=== PATIENT | female | born 1980 | race Caucasian/White ===

== ENCOUNTER 2023-01-08 09:46 | Emergency (ER) | payer OTHER, SELFPAY ==
--- NOTE | ~2023-01-08 | CT_ITS ---
EXAMINATION: CT ABDOMEN AND PELVIS WITH CONTRAST CLINICAL INFORMATION: Right lower quadrant pain COMPARISON: None available. TECHNIQUE: Multidetector volumetric images were obtained from the superior aspect of the liver through the pubic symphysis following administration 85 mL of Omnipaque 350 intravenous contrast. Sagittal and coronal reformatted images were obtained on the technologist's workstation. Oral contrast: Yes This CT examination was performed using dose optimization techniques as appropriate, variously including the following: *Automated exposure control *Adjustment of mA and/or kV according to patient size (this includes techniques or standardized protocols for targeted exams where dose is matched to indication/reason for exam; i.e. extremities or head) *Use of iterative reconstruction technique DLP: 986 mGy-cm FINDINGS: LUNG BASES: The visualized lung bases are unremarkable. LIVER, GALLBLADDER, AND BILIARY TREE: The liver is normal in size, shape, and attenuation. No focal hepatic lesion or biliary ductal dilatation is present. The gallbladder is unremarkable with no evidence of radiopaque gallstones, gallbladder wall thickening, or obvious pericholecystic inflammatory changes. PANCREAS: Unremarkable. SPLEEN: Slightly enlarged measuring 14 cm in length.. ADRENAL GLANDS: Unremarkable. KIDNEYS AND URETERS: The kidneys are normal in size, shape, and attenuation. No hydronephrosis, hydroureter, or calculi seen. No perinephric stranding. BLADDER: Unremarkable. GASTROINTESTINAL TRACT: The small and large bowel are unremarkable. The appendix is unremarkable. ABDOMINAL WALL: No significant hernia is appreciated. LYMPH NODES: Normal. VASCULAR: Unremarkable. PELVIC VISCERA: Enlarged ovaries with multiple bilateral cysts. Small amount of fluid in the pelvis and right lower quadrant. OSSEOUS STRUCTURES: Unremarkable. CT/CT abdomen pelvis w IV con IMPRESSION: Enlarged ovaries with multiple bilateral cysts. Small amount of fluid in the pelvis and right lower quadrant. Ovaries could be better evaluated with pelvic ultrasound if clinically indicated. Otherwise unremarkable exam. The appendix is normal appearing. Fleischner guidelines were followed.
[2023-01-08 09:47] VITALS: BP 156/103; PULSE 117; RESP 18; TEMP 36.7; O2SAT 98; BMI 44.2
--- NOTE | 2023-01-08 12:36 | ED_ITS ---
HPI - General Adult General Chief complaint: Abdominal Pain Stated complaint: abd pain Time Seen by Provider: 01/08/23 12:35 Source: patient Mode of arrival: ambulatory Limitations: no limitations History of Present Illness HPI narrative: Patient is a 42 year old assigned female at with no isgnificant PMH prese nting to the emergency department today with RLQ intermittent abdominal pain since 09:00 today. Patient states that she has an intact appendix and has been having decrease appetite since the onset of pain. [place]raim any past abdominal surgery, possibility of , or abnormal vaginal discharge. Patient denies any dizziness, lightheadedness, nausea, vomiting, fever, chills, blurry vision, double vision, loss of vision, chest pain, difficulty breathing, shortness of breath, back pain, night sweats, pain with urination, increased urinary frequency, increased urinary urgency, blood in her urine or stool, syncope or a near syncopal episode, recent trauma or falls, bowel incontinence, bladder inc ontinence, bowel retention, bladder retention, or any other complaints at this time. Onset (ago): hour(s) Location: abdomen (RLQ) Quality: sharp Pain Consistency: intermittent Relieving factors: none Exacerbating factors: none Associated symptoms: denies other symptoms Treatments prior to arrival: none Related Data Allergies Allergy/AdvReac Type Severity Reaction Status Date / Time No Known Allergies Allergy Verified 01/08/23 09:50 Review of Systems Review of Systems: Yes all other systems are reviewed and are negative Constitutional: Constitutional: Reports as per HPI Eyes: Eyes: Reports no additional eye complaints and Denies loss of vision ENT: Reports system reviewed and no additional complaints, except as documente d and Denies dizziness Cardiovascular: Cardiovascular: Reports no additional cardiovascular complaints, Denies dyspnea on exertion and Denies orthopnea Respiratory: Respiratory: Reports no additional respiratory complaints and Denies dyspnea on exertion Gastrointestinal: Gastrointestinal: Reports as per HPI, Reports abdominal pain, Denies nausea and Denies vomiting Genitourinary: Genitourinary: Reports as per HPI Musculoskeletal: Musculoskeletal: Reports no additional musculoskeletal complaints, Denies numbness and Denies tingling Neurologic: Denies dizziness, Denies loss of vision, Denies numbness and Denies tingling Psychiatric: Psychiatric: Reports no additional psychiatric complaints Endocrine: Endocrine: Reports no additional endocrine complaints Hematologic/Lymphatic: Hematologic/Lymphatic: Reports no additional hematolo gic/lymphatic complaints Allergic/Immunologic: Allergic/Immunologic: Reports no additional allergic/immunologic complaints [facility] Past Medical History Attestation statement: The following information was validated with the patient. Source: old records reviewed and nursing notes reviewed Social History Social History Advance Directives: No Advance Directives Information Provided: No Physical Exam ED Vital Signs: Vital Signs - 24 hr 01/08/23 09:47 01/08/23 13:33 Temperature 98.0 F 98.8 F Pulse Rate 117 H 80 Respiratory Rate 18 16 Blood Pressure 156/103 H 97/57 L Pulse Oximetry 98 99 Oxygen Delivery Method Room Air Room Air BMI result Body Mass Index 44.2 Const General: cooperative and in distress (pacing in room due to discomfort) Nutritional Appearance: well nourished Orientation/consciousness: oriented to person, oriented to place, oriented to time and patient oriented x3 Limitations: no limitations HENMT Head: Yes normal to inspection Ears: hearing grossly normal bilaterally General nose exam: Normal external nose present Face and sinus: Yes normal facial exam Mouth: Normal oral and palatal mucosa present, no drooling and no muffled voice Eyes General: appearance normal, both eyes and all related structures Periorbital: periorbital findings normal Eyelids: Yes eyelids normal Conjunctivae: conjunctivae normal Pupils: Equal, round and reactive pupils present EOM: EOMs intact bilaterally Neck Neck: Yes normal visual inspection and Yes full ROM Chest Chest palpation & inspection: normal inspection of the chest Resp Effort & Inspection: normal respiratory effort and able to speak in complete sentences Auscultation: clear to auscultation bilaterally Cardio Rate: regular rate Rhythm: regular rhythm GI Inspection: Yes normal to inspection, No abdominal wall ecchymosis and No distended Palpation (GI): Soft to palpation, Tenderness to palpation present (GI) in the LLQ and in the RLQ; not at McBurney's point and Rovsing's sign negative, no guarding and not rigid Auscultation: normal bowel sounds General: Yes no CVA tenderness Back/Spine/Pelvis Back: no CVA tenderness Cervical Spine: normal cervical lordosis Thoracic/Lumbar Spine: thoracic and lumbar spine normal to inspection Neuro General: oriented to person, oriented to place, oriented to time and patient oriented x3 Cranial nerves: Yes Equal, round and reactive pupils present Cognition (Neuro): normal cognition Motor exam (neuro): 5/5 motor strength present throughout Sensory Exam: Normal double simultaneous stimulation for sensation Coordination: [id number] test normal Extrem General: Yes normal to inspection, Yes full ROM and Yes capillary refill normal Psych Appearance: grossly normal Mental Status: mental status grossly normal Affect: normal affect Attitude: cooperative Thought process: Normal thought process present Thought content: Normal thought content present Insight: Good insight present (Psych) Medications Administered Discontinued Medications Generic Name Dose Route Start Last Admin Trade Name Shannan PRN Reason Stop Dose Admin Iohexol 100 ml 01/08/23 14:40 01/08/23 14:40 Iohexol 350 Mg/Ml 100 Ml Infus..Btl IV 01/08/23 14:41 85 ml ONCE ONE Administration Morphine Sulfate 4 mg 01/08/23 12:46 01/08/23 13:52 Morphine Sulfate 4 Mg/Ml Cartridge IVPUSH 01/08/23 12:47 4 mg ONCE ONE Administration Protocol Ondansetron HCl 4 mg 01/08/23 12:46 01/08/23 13:52 Ondansetron Hcl 4 Mg/2 Ml Vial IVPUSH 01/08/23 12:47 4 mg ONCE ONE Administration Medical Decision Making Medical Decision Making [facility] Narrative: Patient is a 42 year old assigned female at with no reported medical history presenting to the emergency department today with abdominal pain. Patient's physical exam showed mild abdominal tenderness to palpation but was otherwise unremarkable. Patient's blood work showed an elevated WBC count of 14.5 which I attribute to stress rather than an acute infection. Patient's urine showed a possible urinary tract infection however, the patient denies any urinary symptoms - will wait for culture before treating. Patient's abdo men/pelvis CT showed multiple ovarian cysts but was otherwise unremarkable. I explained my physical exam findings as well as all test results to the patient. I answered all questions asked by the patient. Patient received IV morphine which she stated helped her symptoms significantly. I stressed the importance of the patient taking her medication as prescribed. I stressed the importance of the patient following up with her primary care provider and an OBGYN. I stressed the importance of the patient returning to the emergency department immediately if her symptoms were to worsen or if she were to develop any dizziness, shortness of breath, difficulty breathing, chest pain, blurry vision, loss of vision, nausea, vomiting, abdominal pain, fever, chills, back pain, or any other complaints. Patient verbalized agreement and understanding with this treatment plan and discharge. Differential Diagnosis Differential Diagnoses: The differential diagnosis associated with the presentation includes ovarian cysts, abdominal pain Lab Data MDM Lab Attestation statement: I reviewed the patient's lab results. 01/08/23 13:16 01/08/23 13:16 Labs: Lab Results 01/08/23 01/08/23 01/08/23 Range/Units 13:16 13:16 13:28 WBC 14.5 H (4.8-10.8) X10*3/uL RBC 5.18 (4.20-5.50) X10*6/uL Hgb 12.2 (12.0-16.0) g/dl Hct 39.6 (37.0-47.0) % MCV 76.4 L (80.0-98.0) fL MCH 23.6 L (27.0-33.0) pg MCHC 30.8 L (31.0-35.0) g/dl RDW 15.9 (11.0-16.0) % Plt Count 732 H (160-400) X10*3/uL MPV 9.2 L (9.4-12.3) fL Immature Gran % (Auto) 0.5 H (0.0-0.4) % Neut % (Auto) 82.3 H (45-73) % Lymph % (Auto) 10.3 L (20-40) % Bell % (Auto) 6.2 (2-11) % Eos % (Auto) 0.3 (0-4) % Baso % (Auto) 0.4 (0-2) % Lymph # (Auto) 1.5 (1.2-4.9) X10*3/uL Bell # (Auto) 0.9 (0.1-1.2) X10*3/uL Eos # (Auto) 0.0 (0.0-0.4) X10*3/uL Baso # (Auto) 0.1 (0.0-0.2) X10*3/uL Abs Immat Gran (auto) 0.07 H (0.00-0.03) X10*3/uL Absolute Neuts (auto) 11.9 H (2.0-8.3) x10*3/uL Absolute Nucleated RBC 0.000 (0.0-0.012) X10*3/uL Nucleated RBC % (auto) 0.0 (0.0-0.2) /100WBC Sodium 141 (135-145) mmol/L Potassium 4.8 (3.3-5.1) mmol/L Chloride 105 (96-108) mmol/L Carbon Dioxide 26 (22-29) mmol/L Anion Gap 15 (12-20) BUN 10 (9-16) mg/dL Creatinine 0.84 (0.5-1.4) mg/dL Estim Creat Clear Calc 107.9 Estimated GFR > 60 Random Glucose 88 (60-115) mg/dL Calcium 9.3 (8.4-10.2) mg/dL Total Bilirubin 1.4 H (0.0-1.0) mg/dL AST 15 (5-31) U/L ALT 9 (0-31) U/L Alkaline Phosphatase 60 (39-117) U/L Total Protein 7.3 (6.5-8.0) g/dL Albumin 4.4 (3.5-5.0) g/dL Lipase 28 (8-78) U/L Beta HCG, Quant < 2 mIU/mL Urine Color Yellow Urine Appearance Cloudy Urine pH 5.5 (5.0-9.0) Ur Specific [place] 1.025 (1.005-1.025) Urine Protein 30 (1+) H (Neg-Trace) mg/dL Urine Glucose (UA) Negative (Negative) mg/dL Urine Ketones Trace (Negative) mg/dL Urine Blood Negative (Negative) Urine Nitrite Negative (Negative) Ur Leukocyte Esterase Small (1+) H (Negative) Urine RBC 0-2 (0-2) /HPF Urine WBC 6-10 H (0-5) /HPF Ur Squamous Epith Cells 11-20 (0-2) /HPF Urine Bacteria 1+ (None Seen) Hyaline Casts 0-2 (0-2) /LPF Independent Interpretation I performed an independent interpretation of an: CT Scan Interpretation: My interpretation is in agreement with the radiologist's impression of this imaging study. EXAMINATION: CT ABDOMEN AND PELVIS WITH CONTRAST? CLINICAL INFORMATION: Right lower quadrant pain? COMPARISON: None available. ? TECHNIQUE: Multidetector volumetric images were obtained from the superior aspect of the liver through the pubic symphysis following administration 85 mL of Omnipaque 350 intravenous contrast. Sagittal and coronal reformatted images were obtained on the technologist's workstation.? Oral contrast: Yes This CT examination was performed using dose optimization techniques as appropriate, variously including the following: *Automated exposure control *Adjustment of mA and/or kV according to patient size (this includes techniques or standardized protocols for targeted exams where dose is matched to indication/reason for exam; i.e. extremities or head) *Use of iterative reconstruction technique DLP: 986 mGy-cm FINDINGS: LUNG BASES: The visualized lung bases are unremarkable.? LIVER, GALLBLADDER, AND BILIARY TREE: The liver is normal in size, shape, and attenuation. No focal hepatic lesion or biliary ductal dilatation is present. The gallbladder is unremarkable with no evidence of radiopaque gallstones, gallbladder wall thickening, or obvious pericholecystic inflammatory changes.? PANCREAS: Unremarkable.? SPLEEN: Slightly enlarged measuring 14 cm in length..? ADRENAL GLANDS: Unremarkable.? KIDNEYS AND URETERS: The kidneys are normal in size, shape, and attenuation. No hydronephrosis, hydroureter, or calculi seen. No perinephric stranding. ? BLADDER: Unremarkable.? GASTROINTESTINAL TRACT: The small and large bowel are unremarkable. The appendix is unremarkable.? ABDOMINAL WALL: No significant hernia is appreciated.? LYMPH NODES: Normal. VASCULAR: Unremarkable. PELVIC VISCERA: Enlarged ovaries with multiple bilateral cysts. Small amount of fluid in the pelvis and right lower quadrant. OSSEOUS STRUCTURES: Unremarkable.? CT/CT abdomen pelvis w IV con IMPRESSION: Enlarged ovaries with multiple bilateral cysts. Small amount of fluid in the pelvis and right lower quadrant. Ovaries could be better evaluated with pelvic ultrasound if clinically indicated. Otherwise unremarkable exam. The appendix is normal appearing. Fleischner guidelines were followed. Dictated By: Thelma Moreno MD Signed By: Electronically signed by Thelma Moreno MD 01/08/23 1507 Discharge Plan Discharge Clinical Impression: Abdominal pain, Ovarian cyst Patient Disposition: Home, Self-Care Instructions: Ovarian Cyst (ED), Abdominal Pain (ED) Additional Instructions: Follow up with your primary care provider and an OBGYN. Return to the emergency department immediately if your symptoms worsen or if you develop any dizziness, shortness of breath, difficulty breathing, chest pain, blurry vision, loss of vision, nausea, vomiting, abdominal pain, fever, chills, back pain, or any other complaints. Referrals: [facility] [Provider Group] (Call to establish and follow up with a primary care provider. If you already have a primary care provider, please follow up with them.) [facility], [place] [Provider Group] (Call to establish and follow up with a primary care provider. If you already have a primary care provider, please follow up with them.) [facility],[place] [Provider Group] (Call to establish and follow up with a primary care provider. If you already have a primary care provider, please follow up with them.) Silvano Faith MD [Physician] - (Call to establish and follow up with an OBGYN. If you already have an OBGYN, please follow up with them.) Stand Alone Forms: Work/School Release Print Language: Nicaraguan
[2023-01-08 13:21] LABS: MANUAL DIFF FLAG NO
[2023-01-08 13:25] LABS: Basophils Absolute Auto 0.1 X10*3/uL (0.0-0.2); Basophils Percent Auto 0.4 % (0-2); Eosinophils Percent Auto 0.3 % (0-4); Hematocrit 39.6 % (37.0-47.0); Hemoglobin 12.2 g/dl (12.0-16.0); Imm Gran Abs Auto 0.07 X10*3/uL (0.00-0.03); Imm Gran Pct Auto 0.5 % (0.0-0.4); Lymphocytes Absolute Auto 1.5 X10*3/uL (1.2-4.9); Lymphocytes Percent Auto 10.3 % (20-40); Mean Corpuscular HGB Conc 30.8 g/dl (31.0-35.0); Mean Corpuscular Hemoglobin 23.6 pg (27.0-33.0); Mean Corpuscular Volume 76.4 fL (80.0-98.0); Mean Platelet Volume 9.2 fL (9.4-12.3); Monocytes Absolute Auto 0.9 X10*3/uL (0.1-1.2); Monocytes Percent Auto 6.2 % (2-11); Neutrophils Absolute Auto 11.9 x10*3/uL (2.0-8.3); Neutrophils Percent Auto 82.3 % (45-73); Platelet Count 732 X10*3/uL (160-400); Red Blood Count 5.18 X10*6/uL (4.20-5.50); Red Cell Distribution Width 15.9 % (11.0-16.0); White Blood Count 14.5 X10*3/uL (4.8-10.8)
[2023-01-08 13:33] VITALS: BP 97/57; PULSE 80; RESP 16; TEMP 37.1; O2SAT 99
[2023-01-08 13:48] LABS: Appearance Urine Cloudy; Color Urine Yellow; Glucose Urine UA Negative (Negative); Leukocyte Esterase Urine Small (1+) (Negative); Nitrite Urine Negative (Negative); PH 5.5 (5.0-9.0); Specific Gravity - Urine 1.025 (1.005-1.025); UMIC TRIGGER UACC YES; Urine Blood Negative (Negative); Urine Ketones Trace mg/dL (Negative); Urine Protein 30 (1+) mg/dL (Neg-Trace)
[2023-01-08] MEDS: Morphine Sulfate 4 MG/ML CARTRIDGE IVPUSH (13:52)
[2023-01-08] MEDS: ondansetron HCL 4 MG/2 ML VIAL IVPUSH (13:52)
[2023-01-08 13:53] LABS: Bacteria Urine 1+ (None Seen); Hyaline Casts Urine 0-2 /LPF (0-2); RBC Urine 0-2 /HPF (0-2); UACC Culture Trigger YES
[2023-01-08 13:55] LABS: Alanine Aminotransferase 9 U/L (0-31); Albumin Level 4.4 g/dL (3.5-5.0); Alkaline Phosphatase 60 U/L (39-117); Anion Gap 15 (12-20); Aspartate Amino Transferase 15 U/L (5-31); Bilirubin Total 1.4 mg/dL (0.0-1.0); Blood Urea Nitrogen 10 mg/dL (9-16); Calcium 9.3 mg/dL (8.4-10.2); Carbon Dioxide 26 mmol/L (22-29); Chloride 105 mmol/L (96-108); Creatinine Clr Calc Pharmacy 107.9; Estimated Glomerular Filt Rate > 60; Glucose Random 88 mg/dL (60-115); Lipase 28 U/L (8-78); Potassium 4.8 mmol/L (3.3-5.1); Sodium 141 mmol/L (135-145); Total Protein 7.3 g/dL (6.5-8.0)
[2023-01-08 14:03] LABS: HCG Quantitative < 2 mIU/mL
[2023-01-08] MEDS: iohexoL 350 MG/ML 100 ML INFUS..BTL IV (14:40)
[2023-01-08 15:35] VITALS: BP 127/70; PULSE 77; RESP 18; O2SAT 100
== END 2023-01-08 15:38 | disposition home or self-care (01) ==
PROVIDERS: Physician Assistant Medical; Emergency Provider Emergency Medicine
DX: R10.31 Right lower quadrant pain (principal); R10.13 Epigastric pain; N83.202 Unspecified ovarian cyst, left side; N83.201 Unspecified ovarian cyst, right side; Z79.899 Other long term (current) drug therapy
CPT/HCPCS: 36415; 74177; 80053; 81001; 83690; 84702; 85025; 87086; 96374; 96375; 99283; 99284; J2270; J2405; Q9967

== ENCOUNTER 2023-03-08 15:45 | Outpatient (REF) | payer OTHER, SELFPAY ==
--- NOTE | ~2023-03-08 | US_ITS ---
EXAMINATION: US PELVIS CLINICAL INFORMATION: Follicular cyst of right ovary; the last menstrual period is not specified. COMPARISON: CT abdomen and pelvis dated 01/08/2023. TECHNIQUE: Ultrasound of the pelvis is performed using both transabdominal and transvaginal transducers along with Doppler. Transvaginal imaging is performed due to inadequate visualization transabdominally. FINDINGS: Uterus: The uterus is anteverted and anteflexed. The uterus measures 8.0 x 4.0 x 5.5 cm. The double wall endometrial thickness is 1.0 mm. The uterus is smooth in contour and has normal myometrial echogenicity. No visible fibroid. Adnexa: Both ovaries are visualized. There is normal color flow to the adnexa. There is no ovarian torsion. There is a small amount of nonspecific free fluid within the cul-de-sac. Right ovary measures 6.5 x 2.8 x 4.2 cm, volume 40.0 mL. Multiple simple cysts are seen, the largest showing a maximal diameter of 3.9 cm. Left ovary measures 7.3 x 5.6 x 7.1 cm, volume 151.9 mL. Multiple simple cysts are seen, the largest measuring 5.9 cm in maximal diameter. US/US pelvic and transvaginal IMPRESSION: 1. Multiple simple bilateral ovarian cysts are seen, the largest within the left ovary measuring 5.9 cm in maximal diameter. Recommend follow-up ultrasound examination in 6-12 months for growth rate assessment. Gynecology evaluation and management is recommended. 2. There is a small amount of nonspecific free fluid within the cul-de-sac.
== END 2023-03-08 15:46 | disposition home or self-care (01) ==
LOC: HO.US 15:45
PROVIDERS: Visit Provider Obstetrics & Gynecology
DX: N83.01 Follicular cyst of right ovary (principal); N83.02 Follicular cyst of left ovary; R10.31 Right lower quadrant pain; R10.32 Left lower quadrant pain
CPT/HCPCS: 76830; 76856

== ENCOUNTER 2023-06-21 15:23 | Outpatient (REF) | payer OTHER, SELFPAY ==
--- NOTE | ~2023-06-21 | US_ITS ---
EXAMINATION: US PELVIS CLINICAL INFORMATION: Left ovarian cyst. Last menstrual period 06/03/2023. Bilateral pelvic pain. COMPARISON: None available. TECHNIQUE: Ultrasound of the pelvis is performed using both transabdominal and transvaginal transducers along with Doppler. Transvaginal imaging is performed due to inadequate visualization transabdominally. Limited visualization due to bowel gas and body habitus. FINDINGS: The uterus is heterogeneous, anteverted and anteflexed. The uterus measures 8.9 x 3.6 x 6.0 cm. The double wall endometrial thickness is 0.6 mm. 1.6 x 1.4 x 1.4 cm hypoechoic lesion with echogenic components along the posterior aspect of the uterus on the left may represent a degenerating fibroid. This was difficult to appreciate on the prior exam. 1.3 x 1.4 x 1.2 cm hypoechoic structure adjacent to the right ovary is difficult to characterize and was not previously identified, possibly representing an exophytic fibroid versus complex cyst/mass related to the right ovary. Right ovary measures 5.6 x 6.4 x 4.1 cm, volume 76.9 Multiple cysts are identified, largest measuring cysts are seen, the largest showing a maximal diameter of 3.1 cm. Previous largest right ovarian cyst measured 3.9 x 3.0 x 2.9 cm. Left ovary measures 8.7 x 5.4 x 6.9 cm, volume 169.5 mL. Multiple cysts are identified, largest measuring 4.5 x 4.8 x 5.2 cm, previously 5.6 x 3.1 x 5.9 cm. There is no significant free fluid. US/US pelvic and transvaginal IMPRESSION: 1. Multiple bilateral ovarian cyst with benign features, largest left ovary measures 5.2 cm is stable to slightly decreased in size, allowing for technical limitations. Visualization is limited due to bowel gas and body habitus followup ultrasound imaging could be obtained in 3 months. 2. Possible degenerating fibroid was not previously identified. 3. A 1.4 cm hypoechoic structure adjacent to the right ovary is difficult to characterize and was not previously identified, possibly representing an exophytic fibroid versus complex cyst/mass related to the right ovary. Gynecologic consultation recommended to determine further management. MRI should be considered for further evaluation.
== END 2023-06-21 15:24 | disposition home or self-care (01) ==
LOC: HO.US 15:23
PROVIDERS: Visit Provider Obstetrics & Gynecology
DX: N83.201 Unspecified ovarian cyst, right side (principal)
CPT/HCPCS: 76830; 76856

== ENCOUNTER 2023-10-30 14:19 | Outpatient (REF) | payer OTHER, SELFPAY ==
--- NOTE | ~2023-10-30 | US_ITS ---
EXAMINATION: US PELVIS COMPLETE CLINICAL INFORMATION: Ovarian cyst. COMPARISON: Pelvic ultrasound examinations dated 06/21/2023 and 03/08/2023; CT abdomen and pelvis dated 01/08/2023. TECHNIQUE: Transabdominal and transvaginal imaging were performed. FINDINGS: The uterus is of normal size and echogenicity measuring 10.6 x 3.3 x 5.5 cm. The uterus is anteverted and anteflexed. A regular homogeneous endometrium is identified measuring 0.8 cm. Nabothian cysts are seen within the cervix FIBROIDS: There are 4 fibroids seen. 1. Location: Posterior leftward upper body, myometrial. Size: 1.2 x 1.3 x 1.2 cm. Prior: 1.6 x 1.4 x 1.4 cm. Fibroid characteristics: Heterogeneous echotexture. 2. Location: Posterior leftward body, myometrial. Size: 1.4 x 1.4 x 1.2 cm. Prior: 1.3 x 1.2 x 1.4 cm. Fibroid characteristics: Heterogeneous echotexture. 3. Location: Posterior rightward body, myometrial. Size: 1.2 x 1.0 x 1.2 cm. Prior: 1.3 x 1.1 x 1.2 cm. Fibroid characteristics: Heterogeneously hypoechoic. 4. Location: Posterior leftward body, myometrial. Size: 0.9 x 0.9 x 0.6 cm. Prior: Newly seen. Fibroid characteristics: Heterogeneously hypoechoic. Both ovaries are of normal echotexture. The right ovary measures 4.4 x 3.6 x 3.5 cm for a volume of 29.0 mL. The right ovary contains several follicles and cysts, the largest measuring 3.5 cm. These require no imaging follow-up. The left ovary measures 7.2 x 5.1 x 6.5 cm for a volume of 12.5 mL. The left ovary contains multiple physiologic follicles and simple cysts, the largest measuring 5.6 cm. There is a small amount of free fluid in the right adnexal region. US/US pelvic and transvaginal IMPRESSION: 1. Uterine fibroids are redemonstrated, as detailed. 2. Nabothian cysts are seen within the cervix. 3. There is a small amount of free fluid in the right adnexal region. 4. Bilateral ovarian cysts are redemonstrated, the largest on the left measuring 5.2 cm. The appearance is relatively stable from 06/21/2023, at which time the largest left ovarian cyst showed a maximal diameter of 6.5 cm when measured similarly ().
== END 2023-10-30 14:20 | disposition home or self-care (01) ==
LOC: HO.US 14:19
PROVIDERS: Visit Provider Obstetrics & Gynecology
DX: N83.202 Unspecified ovarian cyst, left side (principal); N83.201 Unspecified ovarian cyst, right side
CPT/HCPCS: 76830; 76856